=== PATIENT | female | born 1950 | race Caucasian/White ===

== ENCOUNTER 2018-09-13 23:51 | Inpatient (IN) | payer OTHER ==
[~2018-09-13] VITALS: Ht 162.6 cm; Wt 82.6 kg
[2018-09-13 23:51] VITALS: BP 220/142
[2018-09-13] MEDS ORDERED: NOHOMEMEDICATIONS (23:56)
--- NOTE | 2018-09-13 23:57 | NUR ---
200 MCG BOLUS OF NITRO GIVEN BY KERI MCGHEE
[2018-09-14] VITALS (8 sets, daily range): BP systolic 135–160; BP diastolic 81–99
[2018-09-14 00:11] LABS: HEMATOCRIT 46.9 % (37.0-47.0); MCH 32.4 pg (26.0-34.0); MCHC 34.2 g/dL (28.0-37.0); MCV 94.7 fL (80.0-100.0); PLATELET COUNT 302 thou/uL (150-400); RBC 4.95 mil/uL (4.20-5.00); RDW 13.2 % (10.5-14.5); WBC 11.9 thou/uL (4.0-11.0)
[2018-09-14 00:17] LABS: ANION GAP 17 mmol/L (7-16); BUN 16 mg/dL (7-18); CALCIUM 9.2 mg/dL (8.5-10.1); CHLORIDE 105 mmol/L (98-107); CO2 19 mmol/L (21-32); CREATININE 1.1 mg/dL (0.6-1.0); GLUCOSE 198 mg/dL (74-106); POTASSIUM 4.3 mmol/L (3.5-5.1); SODIUM 141 mmol/L (136-145)
[2018-09-14 00:26] LABS: ALBUMIN 3.7 g/dL (3.4-5.0); SGOT 56 U/L (15-37); SGPT 64 U/L (30-65); TOTAL BILIRUBIN 0.3 mg/dL (<0.1-1.0); TOTAL PROTEIN 7.7 g/dL (6.4-8.2); TROPONIN-I <0.06 ng/mL (<0.06)
[2018-09-14 00:49] LABS: ABSOLUTE NEUTROPHILS 4.8 thou/uL (1.4-8.2); ATYPICAL LYMPHS 17 %; IMMATURE MONONUCLEARS 1 %
[2018-09-14 05:10] LABS: CHOLESTEROL 229 mg/dL (<200); HDL CHOLESTEROL 66 mg/dL (>40); LDL CHOLESTEROL 148 mg/dL (<100); TC:HDL 3.5 Ratio (Not establshd); TRIGLYCERIDE 79 mg/dL (<150); VLDL 16 mg/dL (<40)
[2018-09-14 05:22] LABS: SERUM ASSESSMENT Clear
--- NOTE | 2018-09-14 05:37 | NUR ---
PT. AOX4; O2 AT 2L; , SON AND DAUGHTER IN LAW WAITING OUTSIDE OF ROOM; NO C/O PAIN; VS WNL; O2 TITRATED TO 1.5L. O2 SAT ABOVE 96%. ADMITION COMPLETE; ASSESSMENT CHARGED.
--- NOTE | 2018-09-14 08:07 | EKG ---
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 : 1950 Requested By: Nirmal Aguirre Order Number: [id number] MD: Yo Lopez Measurements Intervals [place] Rate: 130 P: 13 GA: 101 QRS: 22 QRSD: 87 T: 88 QT: 302 QTc: 444 Interpretive Statements Sinus tachycardia Probable left atrial enlargement Left ventricular hypertrophy Nonspecific T abnormalities, lateral leads Baseline wander in lead(s) II,III,aVL,aVF,V3,V4,V5,V6 No previous ECG available for comparison Electronically Signed On 09-14-2018 8:06:59 GUINEA PIG [employer]EDER by Yo Lopez [email or web address] <ELECTRONICALLY SIGNED> By: Yo Lopez MD 09/14/1806 55 Yo Lopez MD /EPI
--- NOTE | 2018-09-14 08:11 | EKG ---
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
--- NOTE | 2018-09-14 12:16 | 2DMMODE ---
[facility] [address] [place] [address] 2 D/M-MODE ECHOCARDIOGRAM Name: MICHELLEBRITTNEY K Room #: 214-P [facility] IN M.R.#: [id number] Admission: 09/14/18 Attend Phys: Valentin Blackwood, Discharge: Date of : 52 Date of Service: 09/14/18 1215 Report #: [id number] THIS REPORT FOR: //name// APPROVED REPORT Study performed: 09/14/2018 11:32:37 EXAM: Comprehensive 2D, Doppler, and color-flow Echocardiogram Patient Location: Bedside Room #: 214 Status: routine BSA: 1.91 HR: 97 bpm BP: 160/99 mmHg Rhythm: Tachycardia Other Information Study Quality: Adequate Indications Dyspnea 2D Dimensions RVDd: 31.29 mm IVSd: 10.91 (7-11mm) LVDd: 56.90 mm PWd: 11.11 (7-11mm) LVDs: 50.08 (25-40mm) Aortic Root: 26.36 mm IVC: 17.00 mm Volumes Left Atrial Volume (Systole) Single Plane 4CH: 45.70 mL Single Plane 2CH: 81.99 mL LA ESV Index: 37.00 mL/m2 Aortic Valve AoV Peak Torsten.: 1.43 m/s AO Peak Gr.: 8.18 mmHg LVOT Max P.58 mmHg LVOT Max V: 0.95 m/s AI Vmax: 4.07 m/s AI Rapides: 2.35 m/s2 AI PHT: 503.14 ms Mitral Valve E/A Ratio: 1.3 [facility] [place] [address] 2 D/M-MODE ECHOCARDIOGRAM Name: BRITTNEY MARTINEZ Room #: 214-P [facility].#: [id number] Admission: 09/14/18 Attend Phys: Valentin Blackwood, Discharge: Date of : 52 Date of Service: 09/14/18 1215 Report #: [id number] MV Decel. Time: 121.21 ms MV E Max Torsten.: 1.19 m/s MV A Torsten.: 0.94 m/s MV PHT: 35.15 ms IVRT: 51.90 ms Pulmonary Valve PV Peak Torsten.: 0.62 m/s PV Peak Gr.: 1.54 mmHg Pulmonary Vein P Vein S: 0.24 m/s P Vein A: 0.35 m/s P Vein D: 0.44 m/s P Vein A Dur.: 90.0 msec P Vein S/D Ratio: 0.55 Tricuspid Valve TR Peak Torsten.: 3.10 m/s TR Peak Gr.: 38.51 mmHg PA Pressure: 44.00 mmHg Left Ventricle Left ventricle is at the upper limits of normal. There is severe global hypokinesis of the left ventricle. There is normal left ventricular wall thickness. Left ventricular ejection fraction is severely decreased. LVEF 30%. This study is not technically sufficient to allow evaluation of the LV diastolic function. Right Ventricle The right ventricle is normal size. Right ventricular systolic function is low normal. Atria Left atrium is dilated. The right atrium size is normal. Aortic Valve Aortic valve is mildly sclerotic Mild aortic regurgitation. There is no aortic valvular stenosis. Mitral Valve The mitral valve is normal in structure. Severe mitral regurgitation No evidence of mitral valve stenosis. Tricuspid Valve The tricuspid valve is normal in structure. There is mild tricuspid regurgitation. Estimated PAP 44 mmHg. There is moderate pulmonary hypertension. [facility] [address] [place] [address] 2 D/M-MODE ECHOCARDIOGRAM Name: BRITTNEY MARTINEZ Room #: 214-P [facility] IN ..#: [id number] Admission: 09/14/18 Attend Phys: Valentin Blackwood, Discharge: Date of : 52 Date of Service: 09/14/18 1215 Report #: [id number] Pulmonic Valve The pulmonary valve is normal in structure. Trace pulmonic regurgitation. Great Vessels The aortic root is normal in size. IVC is normal in size and collapses >50% with inspiration. Pericardium There is no pericardial effusion. <Conclusion> Left ventricular ejection fraction is severely decreased. There is severe global hypokinesis of the left ventricle. LVEF 30%. Left atrium is dilated. Aortic valve is mildly sclerotic. Mild aortic regurgitation, no stenosis. The mitral valve is normal in structure. Severe mitral regurgitation There is mild tricuspid regurgitation. Estimated pulmonary artery pressure of 44 mmHg. There is no pericardial effusion. <ELECTRONICALLY SIGNED> By: Deepak Moore MD, FACC 09/14/18 1215 14 14 eDepak Moore MD, FACC /INF
[2018-09-14 17:26] LABS: HEMATOCRIT 44.5 % (37.0-47.0); HEMOGLOBIN 15.3 gm/dL (12.0-15.0); MCH 32.1 pg (26.0-34.0); MCHC 34.3 g/dL (28.0-37.0); MCV 93.5 fL (80.0-100.0); RBC 4.76 mil/uL (4.20-5.00); RDW 13.2 % (10.5-14.5); WBC 6.6 thou/uL (4.0-11.0)
[2018-09-14 17:40] LABS: CALCIUM 9.2 mg/dL (8.5-10.1); CREATININE 0.8 mg/dL (0.6-1.0); MAGNESIUM 2.1 mg/dL (1.8-2.4)
--- NOTE | 2018-09-14 18:23 | NUR ---
PT CARE ASSUMED APPROX 0700. PT ALERT AND ORIENTED X4. DENIES PAIN AND SOA. O2 WEANED TO 1L THIS SHIFT. NO ATTEMPT MADE TO WEAN TO RA. BP SLIGHTLY ELEVATED THIS SHIFT. NEW MEDS ORDERED TO CONTROL. IV LASIX ALSO GIVEN X1. ECHO COMPLETED THIS SHIFT AND WAS ABNORMAL. CV DR AND BRIM STITCHER ROUNDED AND REVIEWED RESULTS WITH PT AND SPOUSE. CARDIAC CATH ORDERED FOR TOMORROW. CONSENT OBTAINED. PT AND SPOUSE DENY QUESTIONS OR CONCERNS REGARDING POC OR UPCOMING PROCEDURES. NO DISTRESS NOTED.
[2018-09-14 20:11] LABS: GLYCOHEMOGLOBIN (HGB A1C) 5.2 % (4.8-5.6)
[2018-09-15] VITALS (13 sets, daily range): BP systolic 115–151; BP diastolic 73–98
--- NOTE | 2018-09-15 05:25 | NUR ---
PT. EXPRESSED CONCERN ABOUT PROCEDURE DURING THE MORNING; ST. SHE HAS NOT GOTTEN PRE AND POST CATH INFORMATION; EXPLAINED THE NEED TO REMAIN ON BED AND MANTAIN LEG STRAIGH BETWEEN FOUR AND SIX HOURS; ST. CONCERNED ABOUT BEING NPO FOR SEVERAL HOURS SINCE HAS A HX OF HYPOGLYCEMIA WHEN NOT EATEN FOR LONG PERIODS OF TIME; IT WILL PASS ON REPORT; PRE CATH BATH PERFORMED; NO C/O PAIN; AT THE BED SIDE; ABLE TO REST AFTER MIDNIGHT. ASSESSMENT CHARGED. CONTINUE POC
[2018-09-15 06:10] LABS: HEMATOCRIT 43.6 % (37.0-47.0); HEMOGLOBIN 14.7 gm/dL (12.0-15.0); MCH 31.6 pg (26.0-34.0); MCHC 33.7 g/dL (28.0-37.0); MCV 93.7 fL (80.0-100.0); RBC 4.65 mil/uL (4.20-5.00); WBC 5.2 thou/uL (4.0-11.0)
[2018-09-15 06:26] LABS: ANION GAP 10 mmol/L (7-16); BUN 11 mg/dL (7-18); CHLORIDE 105 mmol/L (98-107); CO2 28 mmol/L (21-32); CREATININE 0.9 mg/dL (0.6-1.0); GLUCOSE 104 mg/dL (74-106); POTASSIUM 3.4 mmol/L (3.5-5.1); SODIUM 143 mmol/L (136-145); TROPONIN-I <0.06 ng/mL (<0.06)
--- NOTE | 2018-09-15 09:58 | NUR ---
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 NO INTERVENTION. VSS. RIGHT GROIN POST SITE C/D/I, NEGATIVE FOR HEMATOMA. AT BEDSIDE. PT AND SPOUSE DENY QUESTIONS AND CONCERNS REGARDING POST CATH VS, IMMOBILITY, AND POC. WILL MONITOR.
--- NOTE | 2018-09-15 12:43 | NUR ---
ASSESSMENT-PT LIVES AT HOME WITH HER WHO IS A CHIROPRACTOR. PT IS INDEPENDENT OF ADLS AND AMBULATION. PT JUST CAME BACK FROM VISITING HER DTR IN [place]. PT USES NO DME AND HAS NOT HAD ANY HH SERVICES. PT DRIVES. PT HAS 2 DTRS THAT LIVE IN [place]. PT SAYS SHE WAS SCHEDULED TO FLY BACK TO [place] NEXT WEEKEND. INSTRUCTED HER TO CHECK WITH THE DR TO SEE IF HE THINKS THAT THIS WOULD BE SAFE FOR HER TO FLY. FOLLOWING TO ASSIST WITH DC PLANNING.
--- NOTE | 2018-09-15 13:11 | CATHLAB ---
[facility] [place] [address] INVASIVE PROCEDURE REPORT Name: MICHELLEGERONIMOHannah Lane Room #: 214-P [facility] IN ..#: [id number] Admission: 09/14/18 Attend Phys: Valentin Blackwood, Discharge: Date of : 52 Date of Service: 09/15/18 1311 Report #: [id number] THIS REPORT FOR: //name// APPROVED REPORT Study performed: 09/15/2018 07:29:41 Patient Details Patient Status: In-Patient Room #: 214 The patient is a 67 year-old female Event Personnel Francisco Javier Lewis [employer], Rusty Cole RN RN, Donovan Chaparro Brown, Roberta Monitor, Josie Banks RTR, [employer] BROKER Monitor Procedures Performed Art Access - R femoral artery* Bony Access - R femoral vein Right and Left Heart Cath w/or w/o Coronarie [id number] RLHC Hemostasis with Manual pressure Indication CHF Current Status: , Dyspnea, Cardiomyopathy, Valvular heart disease Risk Factors Hypertension Procedure Narrative The Right Groin^ was infiltrated with 1% Lidocaine subcutaneous anesthesia. A Right Heart Catheterization was performed with a 7 Fr. Chetek-Rodney catheter and pressure were recorded. Cardiac outputs were obtained by the Leonardo method. A PINNACLE 4FR Sheath #[id number] sheath was inserted into the RFA 4F^. Coronary angiography was performed using coronary diagnostic catheters. The right coronary system was accessed and visualized with a JR4 catheter. The left coronary system was accessed and visualized with a JL4 catheter. The left ventricle was accessed and visualized with a ANGLE PIG catheter. Left ventriculogram was performed in 30 degree projection. Hemostasis was obtained with manual pressure following sheath removal without any complications. The patient tolerated the procedure well and there were no complications associated with the procedure. Intraoperative Conscious Sedation Sedation start time: 814 Case end Time: [facility] [place] [address] INVASIVE PROCEDURE REPORT Name: BRITTNEY MARTINEZ Room #: 214-P [facility] IN [facility].#: [id number] Admission: 09/14/18 Attend Phys: Valentin Blackwood, Discharge: Date of : 52 Date of Service: 09/15/18 1311 Report #: [id number] Fentanyl 50 mcg Versed 1 mg Fluoro Time: 4.04 minutes Dose: DAP 3918.60 cGycm2 424 mGy Contrast Type and Amount: Omnipaque 75 ml Coronary Angiography The patient's coronary anatomy is right dominant. Diagnostic Cath Left Main This is a patent vessel, with no flow-limiting lesions. LAD This is a moderate to large caliber vessel, traversing the anterior wall and wrapping around the apex. There is mild disease in the mid segment, less than 20%. Diagonal 1 This is a patent vessel, with no flow-limiting lesions. Circumflex This is a moderate to large caliber vessel, patent with no flow-limiting lesions. OM1 This is a patent vessel, with no flow-limiting lesions. OM2 This is a patent vessel, with no flow-limiting lesions. Right Coronary This is a dominant vessel, with no flow-limiting lesions. R PDA This is a patent vessel, with no flow-limiting lesions. RPLV This is a patent vessel, with no flow-limiting lesions. Left Ventriculography The left ventricle is mildly dilated in size with decreased contractility. The left ventricular ejection fraction is estimated to be 25-30%. There is at least moderate mitral insufficiency. Hemodynamics The right atrial mean pressure is 14 mmHg. The right ventricular pressure is 34/14 mmHg. The pulmonary artery pressure is 32/20 mmHg with a mean of 25 mmHg. The mean pulmonary capillary wedge pressure is 18 mmHg. The aortic pressure is 140/90 mmHg with a mean of 114 mmHg. The left ventricular pressure is 151/16 mmHg with a mean of mmHg. The left ventricular end diastolic pressure is 32 mmHg. PaO2 saturation is 71.30 %. Arterial saturation is 96.50 %. The cardiac output using the Leonardo method is 3.74 L/min. The cardiac index using the Leonardo method is 1.98 L/min/[place]2. [place] [address] INVASIVE PROCEDURE REPORT Name: BRITTNEY MARTINEZ Room #: 214-P [facility] IN M.R.#: [id number] Admission: 09/14/18 Attend Phys: Valentin Blackwood, Discharge: Date of : 52 Date of Service: 09/15/18 1311 Report #: [id number] Conclusion 1. Mild coronary artery disease in the LAD. 2. Right dominant system. 3. Right-sided chamber pressures as listed. 4. Severe, nonischemic cardiomyopathy. 5. Recommend aggressive risk factor management and GDMT. <ELECTRONICALLY SIGNED> By: Francisco Javier Lewis MD 09/15/181310 10 10 Francisco Javier Lewis MD /INF
--- NOTE | 2018-09-15 13:37 | NUR ---
PT TO HAVE CARDIAC CATH IN THE AM. PT HAS A SON IN THE AREA HERE.
--- NOTE | 2018-09-15 16:04 | NUR ---
PT CARE ASSUMED AT APPROX 0700. PT ALERT AND ORIENTED X4. DENIES PAIN AND SOA. VSS. RIGHT GROIN POST CATH SITE C/D/I AND NEGATIVE FOR HEMATOMA. PT REPORTS MILD TENDERNESS IN POST CATH SITE BUT DOES NOT WANT MEDS AT THIS TIME. STEADY GAIT. FAMILY AT BEDSIDE ALL SHIFT. PT VOIDING WELL POST CATH. BS WNL. IVF NS GIVEN POST CATH. COMPLETED AT THIS TIME. NO DISTRESS NOTED.
[2018-09-16 04:43] VITALS: BP 131/80
--- NOTE | 2018-09-16 05:34 | NUR ---
ASSUMED PT CARE AT 1900. VSS. ASSESSMENTS AND MEDS GIVEN ARE DOCUMENTED. PT A&OX4 RIGHT GROIN ACCESS SITE CLEAN DRY AND INTACT. PT IS STABLE, NO COMPLAINTS OF PAIN OR RESPIRATORY DISTRESS. PT WAS CONCERNED ABOUT ELEVATED BP AT MIDNIGHT, SHE STATED THAT SHE IS WORRIED THAT SHE WOULD NOT BE D/C TODAY BECAUSE HER BP WAS 151/98. BP CAME BACK DOWN TO 131/80 THIS AM AT AROUND 4. PT IS STABLE, WILL CONTINUE TO MONITOR PER POC.
[2018-09-16 05:45] LABS: HEMATOCRIT 42.6 % (37.0-47.0); HEMOGLOBIN 14.5 gm/dL (12.0-15.0); MCH 31.9 pg (26.0-34.0); MCV 93.9 fL (80.0-100.0); RBC 4.53 mil/uL (4.20-5.00); RDW 12.8 % (10.5-14.5); WBC 5.6 thou/uL (4.0-11.0)
[2018-09-16 06:04] LABS: CREATININE 0.8 mg/dL (0.6-1.0); MAGNESIUM 1.9 mg/dL (1.8-2.4); POTASSIUM 3.6 mmol/L (3.5-5.1)
[2018-09-16 08:00] VITALS: BP 133/85
[2018-09-16] MEDS ORDERED: COREG6.25 MG PO (10:28)
[2018-09-16] MEDS ORDERED: QUINU5 PD PO (10:28)
[2018-09-16] MEDS ORDERED: ASPIR 8181 MG PO (10:29)
[2018-09-16] MEDS ORDERED: LASIX 20 MG TAB20 MG PO (10:29)
[2018-09-16 10:54] VITALS: BP 133/85
[2018-09-16] MEDS ORDERED: ATORVASTATIN CA40 MG PO (12:24)
--- NOTE | 2018-09-16 15:09 | NUR ---
ASSUMED CARE OF PATIENT AT 0700. PT/VITALS STABLE. DENIES ANY PAIN. TOLERATES ACTIVITY WELL. ASSESSMENT CHARTED. PROGRESSING WELL WITH POC. NO CHEST PAIN NOTED. PATIENT RELEASED FROM CARDIOLOGY TO FOLLOW UP OUTPATIENT. TELE AND IV DISCONTINUED. PATIENT STATES THAT SHE FEELS BETTER THAN SHE DID ON ADMISSION. PATIENT'S RIGHT GROIN IS FREE OF EDEMA, HEMATOMA OR DRINAGE. PATIENT GIVEN NEW SCRIPTS WITH INFORMATION SHEETS. DISCHARGE PAPERWORK REVIEWED. PATIENT'S WHEELED TO THE EMERGENCY ROOM ENTRANCE VIA WHEELCHAIR BY THIS NURSE AT 1115.
[2018-09-18 12:00] LABS: BE(vivo) -2.3 mmol/L (-2 to +3); HCO3 23.7 mmol/L (22.0-26.0); PCO2 45.1 mmHg (35.0-45.0); pH 7.338 (7.360-7.450); sO2 71.3 % (92.0-98.0)
[2018-09-18 12:00] LABS: BE(vivo) 1.3 mmol/L (-2 to +3); HCO3 27.1 mmol/L (22.0-26.0); PCO2 46.9 mmHg (35.0-45.0); PO2 89.6 mmHg (80.0-100.0); sO2 96.6 % (92.0-98.0)
[2018-09-18 12:04] LABS: PO2 39.8 mmHg (80.0-100.0)
== END 2018-09-16 11:30 | disposition home or self-care (01) | DRG 286 ==
LOC: ER 23:51 → 2N 09-14 00:54 → EROBS 09-14 00:54 → 2N 09-14 01:56
PROVIDERS: Emergency Medicine; Nurse Practitioner Acute Care; ADMIT Internal Medicine
PROC: 5A09357 Assistance with Respiratory Ventilation, Less than 24 Consecutive Hours, Continuous Positive Airway Pressure (ICD-10-PCS; principal; 2018-09-14)
PROC: 4A023N8 Measurement of Cardiac Sampling and Pressure, Bilateral, Percutaneous Approach (ICD-10-PCS; 2018-09-15)
PROC: B2111ZZ Fluoroscopy of Multiple Coronary Arteries using Low Osmolar Contrast (ICD-10-PCS; 2018-09-15)
PROC: B2151ZZ Fluoroscopy of Left Heart using Low Osmolar Contrast (ICD-10-PCS; 2018-09-15)
DX: I11.0 Hypertensive heart disease with heart failure (principal); J81.0 Acute pulmonary edema; I50.21 Acute systolic (congestive) heart failure; J96.00 Acute respiratory failure, unspecified whether with hypoxia or hypercapnia; I25.10 Atherosclerotic heart disease of native coronary artery without angina pectoris; I42.9 Cardiomyopathy, unspecified; I16.0 Hypertensive urgency; R73.9 Hyperglycemia, unspecified; F17.290 Nicotine dependence, other tobacco product, uncomplicated; E87.70 Fluid overload, unspecified; E87.6 Hypokalemia; I34.0 Nonrheumatic mitral (valve) insufficiency; Z79.82 Long term (current) use of aspirin; Z79.899 Other long term (current) drug therapy; Z80.7 Family history of other malignant neoplasms of lymphoid, hematopoietic and related tissues
CPT/HCPCS: 10081

== ENCOUNTER → 2020-03-25 | Outpatient (CLI) | payer OTHER ==
[~2020-03-25] MED LIST: ASPIR 8181 MG PO; ATORVASTATIN CA40 MG PO; COREG6.25 MG PO; LASIX 20 MG TAB20 MG PO; NOHOMEMEDICATIONS; QUINU5 PD PO
--- NOTE | 2020-03-25 15:26 | 2DMMODE ---
[facility] [place] [address] 2 D/M-MODE ECHOCARDIOGRAM Name: KODI MARTINEZ Room #: REG [facility]#: [id number] Admission: 03/25/20 Attend Phys: Rolando Delcid, Discharge: Date of : 52 Report #: [id number] THIS REPORT FOR: cc: Francisco Javier Lewis MD, Jin S. MD Park, Jin S. MD ~ APPROVED REPORT Study performed: 03/25/2020 14:28:58 EXAM: Comprehensive 2D, Doppler, and color-flow Echocardiogram Patient Location: Out-Patient Status: routine BSA: 1.85 HR: 68 bpm BP: 132/80 mmHg Rhythm: NSR Other Information Study Quality: Adequate Indications Limited follow up echo for LV function. Nonischemic cardiomyopathy. (EF 35-40% 11/2018) ( EF 50% 03/2019) Aortic Valve AoV Peak Torsten.: 1.56 m/s AO Peak Gr.: 9.78 mmHg Mitral Valve E/A Ratio: 0.7 MV Decel. Time: 242.68 ms MV E Max Torsten.: 0.47 m/s MV A Torsten.: 0.69 m/s MV PHT: 70.38 ms Tricuspid Valve TR Peak Torsten.: 2.03 m/s RAP Estimate: 5.00 mmHg TR Peak Gr.: 17.00 mmHg PA Pressure: 22.00 mmHg [facility] [address] [place] [address] 2 D/M-MODE ECHOCARDIOGRAM Name: KODI MARTINEZ Room #: REG Lorenzo#: [id number] Admission: 03/25/20 Attend Phys: Rolando Dao Discharge: Date of : 52 Report #: [id number] Left Ventricle The left ventricle is normal size. There is normal LV segmental wall motion. There is normal left ventricular wall thickness. Left ventricular systolic function is normal. LVEF is 55%. Grade I - abnormal relaxation pattern. Right Ventricle The right ventricle is normal size. The right ventricular systolic function is normal. Atria The left atrium size is normal. The right atrium size is normal. Aortic Valve The aortic valve is normal in structure. Mild aortic regurgitation. There is no aortic valvular stenosis. Mitral Valve The mitral valve is normal in structure. Mild mitral regurgitation. Tricuspid Valve The tricuspid valve is normal in structure. Mild tricuspid regurgitation. Estimated PAP is 20-25mmHg. Great Vessels IVC is normal in size and collapses >50% with inspiration. Pericardium There is no pericardial effusion. <Conclusion> The left ventricle is normal size. Left ventricular systolic function is normal. Grade I - abnormal relaxation pattern. The left atrium size is normal. Mild aortic regurgitation. Mild mitral regurgitation. Mild tricuspid regurgitation. Estimated PAP is 20-25mmHg. <ELECTRONICALLY SIGNED> By: Francisco Javier Lewis MD 03/25/20 1526 1526 152 Francisco Javier Lewis MD /ROWAN
== END ==
LOC: CV 13:52
PROVIDERS: ATTEND Internal Medicine Cardiovascular Disease
DX: I08.3 Combined rheumatic disorders of mitral, aortic and tricuspid valves (principal); I42.8 Other cardiomyopathies; I25.10 Atherosclerotic heart disease of native coronary artery without angina pectoris